=== PATIENT | male | born 1950 | race Caucasian/White ===

== ENCOUNTER 2022-12-19 07:55 | Inpatient (IN) | payer MEDICARE, OTHER ==
[~2022-12-19] VITALS: Ht 160 cm; Wt 103.9 kg
[2022-12-19] MEDS ORDERED: OZEMPIC0.25 MG/0. SC (08:25)
[2022-12-19] MEDS ORDERED: ENALAPRILAT IV INJ 1.25 MG/ML VIAL IV STA ×3 (08:27→11:30)
[2022-12-19] MEDS ORDERED: SODIUM CHLORIDE FLUSH 10 ML SYR IV PRN (08:30)
[2022-12-19 08:39] LABS: BASOPHILS # (AUTO) 0.1 (0.0-0.1); BASOPHILS % 0.4 % (0.0-1.0); EOSINOPHILS # (AUTO) 0.1 (0.0-0.4); HEMATOCRIT 45.7 % (38.2-49.6); HEMOGLOBIN 14.6 g/dL (14.0-18.0); LYMPHOCYTES # (AUTO) 0.8 (1.0-3.2); LYMPHOCYTES % 6.8 % (18.0-39.1); MEAN CORPUSCULAR HEMOGLOBIN 32.2 pg (28-32); MEAN CORPUSCULAR HGB CONC 31.9 g/dL (31-35); MEAN CORPUSCULAR VOLUME 100.7 fL (81-99); MONOCYTES # (AUTO) 0.6 (0.2-0.8); MONOCYTES % 4.7 % (4.4-11.3); NEUTROPHILS # (AUTO) 10.8 (2.1-6.9); NEUTROPHILS % 86.7 % (38.7-80.0); PLATELET COUNT 272 x10e3/uL (140-360); RED BLOOD COUNT 4.54 x10e6/uL (4.3-5.7); RED CELL DISTRIBUTION WIDTH 13.8 % (11.7-14.4)
[2022-12-19 08:58] LABS: ALBUMIN 3.4 g/dL (3.5-5.0); ALBUMIN/GLOBULIN RATIO 0.9 (0.8-2.0); ANION GAP 15.1 mmol/L (8-16); CALCIUM 8.8 mg/dL (8.4-10.2); CREATININE, SERUM 0.75 mg/dL (0.72-1.25); POTASSIUM 4.1 mmol/L (3.5-5.1)
[2022-12-19] MEDS ORDERED: FUROSEMIDE INJ 10 MG/ML 4 ML VIAL IV ONE (10:00)
[2022-12-19] MEDS: INSULIN REGULAR, HUMAN 100 UNIT/1 ML SQ SCH ×3 (11:30→20:28)
[2022-12-19] MEDS ORDERED: ENALAPRILAT IV INJ 1.25 MG/ML VIAL IV PRN (11:30)
[2022-12-19] MEDS ORDERED: DEXTROSE 50% SYRINGE 50 ML IV PRN (11:30)
[2022-12-19] MEDS ORDERED: FUROSEMIDE INJ 10 MG/ML 2 ML VIAL IV SCH (12:00)
[2022-12-19] MEDS ORDERED: CARVEDILOL25 MG PO (13:19)
[2022-12-19] MEDS ORDERED: OLMESARTAN MEDO40 MG PO (13:19)
[2022-12-19] MEDS ORDERED: TERAZOSIN HCL1 MG PO (13:19)
[2022-12-19] MEDS ORDERED: PRAVASTATIN SOD80 MG PO (13:19)
[2022-12-19 13:22] VITALS: BP 161/102
[2022-12-19 13:25] VITALS: BP 161/102
[2022-12-19 13:35] VITALS: BP 161/102
[2022-12-19] MEDS: FUROSEMIDE INJ 10 MG/ML 4 ML VIAL IV SCH (16:11)
[2022-12-19] MEDS: CARVEDILOL 3.125 MG TAB PO SCH (16:12)
[2022-12-19 16:19] LABS: CREATINE KINASE MB 2.6 ng/mL (0-5.0)
[2022-12-19 16:24] VITALS: BP 189/91
[2022-12-19] MEDS ORDERED: ALBUTEROL/IPRATROPIUM 3 ML NEB NEB SCH (16:45)
[2022-12-19] MEDS ORDERED: ALBUTEROL/IPRATROPIUM 3 ML NEB NEB PRN (16:45)
[2022-12-19] MEDS ORDERED: ALBUTEROL SULF 0.083% NEB SOLN 3 ML NEB NEB PRN (17:00)
[2022-12-19] MEDS ORDERED: IPRATROPIUM BROMIDE 0.02% 2.5 ML NEB NEB PRN (17:15)
[2022-12-19] MEDS: ENOXAPARIN SOD INJ 40 MG/0.4 ML SYR SC SCH (17:36)
[2022-12-19] MEDS: METHYLPREDNISOLONE SOD SUCC 40 MG/ML VIAL 1ML IV SCH (17:36)
[2022-12-19] MEDS ORDERED: SODIUM CHLORIDE 0.9% 250ML 250 ML ONE (17:42)
[2022-12-19] MEDS: IPRATROPIUM BROMIDE 0.02% 2.5 ML NEB NEB SCH (19:25)
[2022-12-19] MEDS: ALBUTEROL SULF 0.083% NEB SOLN 3 ML NEB NEB SCH (19:25)
[2022-12-19 20:00] VITALS: BP 186/98
[2022-12-19] MEDS: HYDRALAZINE HCL 20 MG/ML VIAL IV PRN (20:26)
[2022-12-19] MEDS: SIMVASTATIN 40 MG TAB PO SCH (20:26)
[2022-12-19] MEDS: ACETAMINOPHEN 325 MG TAB PO PRN (20:27)
[2022-12-19] MEDS: TERAZOSIN HCL 1 MG CAP PO SCH (20:27)
[2022-12-19] MEDS: INSULIN GLARGINE 100 UNITS/ML VIAL SQ SCH (20:28)
[2022-12-20] VITALS (7 sets, daily range): BP systolic 132–170; BP diastolic 64–102
[2022-12-20 00:18] LABS: CREATINE KINASE MB 2.1 ng/mL (0-5.0)
[2022-12-20] MEDS: ALBUTEROL SULF 0.083% NEB SOLN 3 ML NEB NEB SCH ×4 (01:00→19:05)
[2022-12-20] MEDS: IPRATROPIUM BROMIDE 0.02% 2.5 ML NEB NEB SCH ×4 (01:00→19:05)
[2022-12-20 05:32] LABS: BASOPHILS % 0.1 % (0.0-1.0); HEMATOCRIT 41.6 % (38.2-49.6); HEMOGLOBIN 13.8 g/dL (14.0-18.0); LYMPHOCYTES # (AUTO) 0.6 (1.0-3.2); LYMPHOCYTES % 5.7 % (18.0-39.1); MEAN CORPUSCULAR HEMOGLOBIN 32.5 pg (28-32); MEAN CORPUSCULAR HGB CONC 33.2 g/dL (31-35); MEAN CORPUSCULAR VOLUME 98.1 fL (81-99); MONOCYTES # (AUTO) 0.5 (0.2-0.8); MONOCYTES % 4.5 % (4.4-11.3); NEUTROPHILS % 89.4 % (38.7-80.0); PLATELET COUNT 243 x10e3/uL (140-360); RED BLOOD COUNT 4.24 x10e6/uL (4.3-5.7); RED CELL DISTRIBUTION WIDTH 13.5 % (11.7-14.4)
[2022-12-20 05:54] LABS: ANION GAP 12.3 mmol/L (8-16); CALCIUM 8.9 mg/dL (8.4-10.2); CREATININE, SERUM 0.81 mg/dL (0.72-1.25); POTASSIUM 3.3 mmol/L (3.5-5.1)
[2022-12-20] MEDS: FUROSEMIDE INJ 10 MG/ML 4 ML VIAL IV SCH ×2 (05:54→17:29)
[2022-12-20 05:56] LABS: CHOL/HDL RATIO 4.5 (3.9-4.7)
[2022-12-20] MEDS: HYDRALAZINE HCL 20 MG/ML VIAL IV PRN (06:19)
[2022-12-20 06:56] LABS: CREATINE KINASE MB 2.1 ng/mL (0-5.0)
[2022-12-20] MEDS: INSULIN REGULAR, HUMAN 100 UNIT/1 ML SQ SCH ×4 (07:54→21:00)
[2022-12-20] MEDS: METHYLPREDNISOLONE SOD SUCC 40 MG/ML VIAL 1ML IV SCH ×2 (08:00→21:55)
[2022-12-20] MEDS: CARVEDILOL 3.125 MG TAB PO SCH ×2 (08:00→16:17)
[2022-12-20] MEDS: LOSARTAN POTASSIUM 100 MG TAB PO SCH (08:01)
[2022-12-20] MEDS ORDERED: POTASSIUM CHLORIDE 10MEQ EA PO ONE (09:00)
[2022-12-20] MEDS ORDERED: LOSARTAN POTASSIUM 25 MG TAB PO SCH (09:00)
[2022-12-20] MEDS ORDERED: HYDRALAZINE HCL 20 MG/ML VIAL IV PRN (10:30)
[2022-12-20 12:07] LABS: CREATINE KINASE MB 2.8 ng/mL (0-5.0)
[2022-12-20] MEDS: ACETAMINOPHEN 325 MG TAB PO PRN (16:21)
[2022-12-20] MEDS: ENOXAPARIN SOD INJ 40 MG/0.4 ML SYR SC SCH (16:30)
[2022-12-20] MEDS: INSULIN GLARGINE 100 UNITS/ML VIAL SQ SCH (21:00)
[2022-12-20] MEDS: TERAZOSIN HCL 1 MG CAP PO SCH (21:55)
[2022-12-20] MEDS: SIMVASTATIN 40 MG TAB PO SCH (21:55)
[2022-12-21] MEDS: ALBUTEROL SULF 0.083% NEB SOLN 3 ML NEB NEB SCH ×2 (01:00→07:00)
[2022-12-21] MEDS: IPRATROPIUM BROMIDE 0.02% 2.5 ML NEB NEB SCH ×2 (01:00→07:00)
[2022-12-21 04:00] VITALS: BP 168/81
[2022-12-21] MEDS: FUROSEMIDE INJ 10 MG/ML 4 ML VIAL IV SCH (05:34)
[2022-12-21 08:18] VITALS: BP 172/92
[2022-12-21 08:39] VITALS: BP 172/92
[2022-12-21] MEDS: INSULIN REGULAR, HUMAN 100 UNIT/1 ML SQ SCH ×2 (08:40→11:30)
[2022-12-21] MEDS: METHYLPREDNISOLONE SOD SUCC 40 MG/ML VIAL 1ML IV SCH (08:41)
[2022-12-21] MEDS: LOSARTAN POTASSIUM 100 MG TAB PO SCH (08:42)
[2022-12-21] MEDS: CARVEDILOL 3.125 MG TAB PO SCH (08:42)
[2022-12-21] MEDS ORDERED: POTASSIUM CHLORIDE 10MEQ EA PO SCH (09:00)
[2022-12-21 12:28] VITALS: BP 153/80
[2022-12-26] MEDS ORDERED: (Semaglutide (Ozempic) 0.5 MG) SC SCH (09:00)
== END 2022-12-21 12:47 | disposition home or self-care (01) | DRG 291 ==
LOC: ER 08:08 → ERHOLD 11:38 → MED/SURG3 12:45
PROVIDERS: ADMIT Internal Medicine; ATTEND Internal Medicine
DX: I11.0 Hypertensive heart disease with heart failure (principal); I50.33 Acute on chronic diastolic (congestive) heart failure; J96.01 Acute respiratory failure with hypoxia; J44.1 Chronic obstructive pulmonary disease with (acute) exacerbation; Z68.41 Body mass index [BMI] 40.0-44.9, adult; F17.200 Nicotine dependence, unspecified, uncomplicated; E66.01 Morbid (severe) obesity due to excess calories; E11.9 Type 2 diabetes mellitus without complications; E78.5 Hyperlipidemia, unspecified; N40.0 Benign prostatic hyperplasia without lower urinary tract symptoms; Z20.822 Contact with and (suspected) exposure to COVID-19
CPT/HCPCS: 0223U; 36415; 71045; 71250; 80048; 80053; 80061; 82550; 82553; 82948; 83036; 83880; 84443; 84484; 85025; 93005; 93306; 94640; 94760; 94799; 99284; G0378; J0360; J0456; J0696; J1650; J1815; J1817; J1940; J2920; J7050